=== PATIENT | female | born 1945 | race Caucasian/White ===

== ENCOUNTER 2018-07-17 13:23 | Outpatient (CLI) | payer MEDICARE ==
--- NOTE | 2018-07-17 15:35 | XRAY Report ---
Reason: PRIOR FRACTURE CONTINUED PAIN L FOOT Procedure Date: 07/17/2018 Accession Number: [id number] / [id number] Procedure: XR - Foot 3 View LT CPT Code: FULL RESULT: EXAM: LEFT FOOT RADIOGRAPHY EXAM DATE: 07/17/2018 01:33 PM. CLINICAL HISTORY: PRIOR FRACTURE CONTINUED PAIN L FOOT. COMPARISON: None. TECHNIQUE: 3 views. FINDINGS: Bones: Bones appear globally subjectively osteopenic. No fractures or bone lesions. Joints: Normal. No subluxations. Soft Tissues: Normal. No soft tissue swelling. IMPRESSION: No fracture is detected. [facility]
== END 2018-07-17 13:24 | disposition home or self-care (01) ==
LOC: DI 13:23
PROVIDERS: ATTEND Podiatrist
DX: M79.672 Pain in left foot (principal)

== ENCOUNTER 2020-02-24 13:47 | Outpatient (CLI) | payer MEDICARE ==
[2020-02-24 21:20] LABS: CALCIUM 9.3 mg/dL (8.5-10.3); CREATININE 0.7 mg/dL (0.4-1.0)
== END 2020-02-24 13:48 | disposition home or self-care (01) ==
LOC: LAB.S 13:47
PROVIDERS: ATTEND Internal Medicine Endocrinology, Diabetes & Metabolism
DX: Q78.0 Osteogenesis imperfecta (principal)
CPT/HCPCS: 36415; 80048

== ENCOUNTER 2020-09-16 14:21 | Outpatient (CLI) | payer MEDICARE ==
[2020-09-16 20:36] LABS: CALCIUM 9.3 mg/dL (8.5-10.3); CREATININE 0.7 mg/dL (0.4-1.0)
== END 2020-09-16 14:22 | disposition home or self-care (01) ==
LOC: LAB.S 14:21
DX: Q78.0 Osteogenesis imperfecta (principal)
CPT/HCPCS: 36415; 80048; 82306

== ENCOUNTER 2021-03-24 13:04 | Outpatient (CLI) | payer MEDICARE ==
[2021-03-24 20:16] LABS: ALBUMIN 4.4 g/dL (3.2-5.5); ALBUMIN/GLOBULIN RATIO 2.1 (1.0-2.2); BILIRUBIN,TOTAL 0.6 mg/dL (0.2-1.0); CALCIUM 9.6 mg/dL (8.5-10.3); CREATININE 0.6 mg/dL (0.4-1.0); POTASSIUM 4.3 mmol/L (3.5-5.0); TOTAL PROTEIN 6.5 g/dL (6.7-8.2)
== END 2021-03-24 13:05 | disposition home or self-care (01) ==
LOC: LAB.S 13:04
PROVIDERS: ATTEND Internal Medicine
DX: Q78.0 Osteogenesis imperfecta (principal)
CPT/HCPCS: 36415; 80053; 82306

== ENCOUNTER 2021-04-21 13:33 | Outpatient (CLI) | payer MEDICARE ==
[2021-04-21 20:03] LABS: CALCIUM 9.9 mg/dL (8.5-10.3); CREATININE 0.7 mg/dL (0.4-1.0); POTASSIUM 4.2 mmol/L (3.5-5.0)
== END 2021-04-21 13:34 | disposition home or self-care (01) ==
LOC: LAB.S 13:33
PROVIDERS: ATTEND Internal Medicine
DX: Q78.0 Osteogenesis imperfecta (principal); M81.0 Age-related osteoporosis without current pathological fracture
CPT/HCPCS: 36415; 80048; 82306

== ENCOUNTER 2021-05-18 08:00 | Outpatient (CLI) | payer MEDICARE | END 2021-05-18 23:59 | disposition home or self-care (01) | LOC: LAB.R 08:00 | PROVIDERS: ATTEND Internal Medicine | DX: Q78.0 Osteogenesis imperfecta (principal) | CPT/HCPCS: 81599; 82523; 82570 ==

== ENCOUNTER 2021-10-16 14:01 | Outpatient (CLI) | payer MEDICARE ==
[2021-10-16 17:54] LABS: CALCIUM 9.6 mg/dL (8.5-10.3); CREATININE 0.8 mg/dL (0.4-1.0); POTASSIUM 4.1 mmol/L (3.5-5.0)
== END 2021-10-16 14:02 | disposition home or self-care (01) ==
LOC: LAB.S 14:01
PROVIDERS: ATTEND Internal Medicine
DX: E55.9 Vitamin D deficiency, unspecified (principal); Q78.0 Osteogenesis imperfecta; M81.0 Age-related osteoporosis without current pathological fracture
CPT/HCPCS: 36415; 80048; 82306

== ENCOUNTER 2022-04-29 09:54 | Outpatient (CLI) | payer MEDICARE ==
[2022-04-29 15:39] LABS: ALBUMIN 4.3 g/dL (3.2-5.5); ALBUMIN/GLOBULIN RATIO 1.8 (1.0-2.2); BILIRUBIN,TOTAL 0.7 mg/dL (0.2-1.0); CALCIUM 10.1 mg/dL (8.5-10.3); CREATININE 0.7 mg/dL (0.4-1.0); POTASSIUM 3.9 mmol/L (3.5-5.0); TOTAL PROTEIN 6.7 g/dL (6.7-8.2)
== END 2022-04-29 09:55 | disposition home or self-care (01) ==
LOC: LAB.S 09:54
PROVIDERS: ATTEND Internal Medicine
DX: M81.0 Age-related osteoporosis without current pathological fracture (principal)
CPT/HCPCS: 36415; 80053; 82306

== ENCOUNTER 2022-08-12 08:00 | Outpatient (CLI) | payer MEDICARE | END 2022-08-12 23:59 | disposition home or self-care (01) | LOC: LAB.R 08:00 | PROVIDERS: ATTEND Internal Medicine | DX: R19.7 Diarrhea, unspecified (principal) | CPT/HCPCS: 81599; 83630; 87045; 87046; 87427; 87493 ==

== ENCOUNTER 2022-12-20 12:36 | Outpatient (CLI) | payer MEDICARE ==
[2022-12-20 14:44] LABS: BASOPHILS % (AUTO) 0.7 %; EOSINOPHILS # (AUTO) 0.1 10^3/uL (0.0-0.7); HCT - HEMATOCRIT 44.4 % (37.0-47.0); HGB - HEMOGLOBIN 14.4 g/dL (12.0-16.0); LYMPHOCYTES # (AUTO) 1.6 10^3/uL (1.5-3.5); LYMPHOCYTES % (AUTO) 28.1 %; MEAN CORPUSCULAR HEMOGLOBIN 31.7 pg (27.0-31.0); MEAN CORPUSCULAR HGB CONC 32.4 g/dL (32.0-36.0); MEAN CORPUSCULAR VOLUME 97.8 fL (81.0-99.0); MEAN PLATELET VOLUME 12.4 fL (7.9-10.8); MONOCYTES # (AUTO) 0.6 10^3/uL (0.0-1.0); MONOCYTES % (AUTO) 9.9 %; NEUTROPHILS # (AUTO) 3.5 10^3/uL (1.5-6.6); PLT - PLATELET COUNT 177 10^3/uL (130-450); RED BLOOD COUNT 4.54 10^6/uL (4.20-5.40); RED CELL DISTRIBUTION WIDTH 14.1 % (12.0-15.0); WHITE BLOOD COUNT 5.8 x10^3/uL (4.8-10.8)
[2022-12-20 15:04] LABS: ALBUMIN 4.5 g/dL (3.2-5.5); ALBUMIN/GLOBULIN RATIO 1.9 (1.0-2.2); ALKALINE PHOSPHATASE 55 IU/L (42-121); ALT ALANINE AMINOTRANSFERASE 25 IU/L (10-60); AST ASPARTATE AMINOTRANSFERASE 22 IU/L (10-42); BILIRUBIN,TOTAL 0.7 mg/dL (0.2-1.0); BUN - BLOOD UREA NITROGEN 20 mg/dL (6-20); CALCIUM 10.3 mg/dL (8.5-10.3); CARBON DIOXIDE - CO2 28 mmol/L (21-32); CHLORIDE 106 mmol/L (101-111); CHOL/HDL RATIO 1.6 (<4.4); CHOLESTEROL 191 mg/dL; CREATININE 0.7 mg/dL (0.4-1.0); GFR - MDRD 81 (>89); GLUCOSE 98 mg/dL (70-100); HDL CHOLESTEROL 120 mg/dL; LDL CHOLESTEROL,CALCULATED 60 mg/dL; LDL/HDL RATIO 0.5 (<4.4); POTASSIUM 4.7 mmol/L (3.5-5.0); SODIUM 143 mmol/L (135-145); TOTAL PROTEIN 6.9 g/dL (6.7-8.2); TRIGLYCERIDES 54 mg/dL; VLDL CHOLESTEROL 11 mg/dL
[2022-12-20 15:18] LABS: THYROID STIMULATING HORMONE 0.91 uIU/mL (0.34-5.60)
[2022-12-21 08:10] LABS: HCV AB Non Reactive (Non Reactive)
== END 2022-12-20 12:37 | disposition home or self-care (01) ==
LOC: LAB.S 12:36
PROVIDERS: ATTEND Internal Medicine
DX: E78.5 Hyperlipidemia, unspecified (principal); Z11.59 Encounter for screening for other viral diseases
CPT/HCPCS: 36415; 80053; 80061; 83721; 84443; 85025; 86803